=== PATIENT | female | born 1980 | race African-American/Black ===

== ENCOUNTER 2016-09-10 01:38 | Emergency (ER) | payer SELFPAY ==
[~2016-09-10] VITALS: Ht 162.6 cm; Wt 127.0 kg
[2016-09-10 07:27] LABS: *AMPHETAMINES SCREEN URINE NEGATIVE (NEGATIVE); *BARBITURATES SCREEN URINE NEGATIVE (NEGATIVE); *BENZODIAZEPINES SCREEN URINE NEGATIVE (NEGATIVE); *COCAINE SCREEN URINE NEGATIVE (NEGATIVE); CANNABINOID URINE SCREEN NEGATIVE (NEGATIVE); METHADONE URINE SCREEN NEGATIVE (NEGATIVE); OPIATES URINE SCREEN NEGATIVE (NEGATIVE); PHENCYCLIDINE URINE SCREEN NEGATIVE (NEGATIVE)
[2016-09-10] MEDS ORDERED: ACETAMINOPHEN 325MG TABLET PO ONE (08:45)
[2016-09-10 09:05] VITALS: BP 151/124
== END 2016-09-10 09:09 | disposition home or self-care (01) ==
LOC: ER 01:38
DX: M79.662 Pain in left lower leg (principal); M79.661 Pain in right lower leg; E11.9 Type 2 diabetes mellitus without complications; I10 Essential (primary) hypertension
CPT/HCPCS: 80305; 81025; 82962; 93970; 99285; Z7610